=== PATIENT | female | born 1970 | race Caucasian/White ===

== ENCOUNTER 2016-09-13 13:20 | Outpatient (CLI) | payer OTHER ==
--- NOTE | 2016-09-13 14:36 | DIAGNOSTIC IMAGING REPORT ---
PROCEDURE: CT SINUS/FACIAL BONES W/O CONT CLINICAL INDICATION: RECURRENT SINSUSITIS TECHNIQUE: Noncontrast axial CT images through the sinuses. Coronal and sagittal reformations were created. COMPARISON: None. FINDINGS: The frontal sinuses are normally aerated. The outflow tracts are patent. Sphenoid sinuses are normally aerated. No significant mucosal thickening throughout the ethmoid air cells. The maxillary sinuses are normally aerated with without mucosal thickening. Diminutive caliber of the left sphenoid sinus outflow tract and left maxillary sinus outflow tract. No significant mucosal thickening at the ostiomeatal unit on either side. The nasal septum is mildly irregular but fairly midline suggestive of prior fracture and healing. No significant deviation or spur formation. Small amount of mucus present posteriorly along the inferior portion of the right nasal passage. Normal nasal turbinate morphology. The visible portions of the mastoid cavities are normally aerated. No facial bone fractures. Temporomandibular joints are normally aligned. Bony orbits are intact. Orbital soft tissues appear normal. Facial soft tissues and visible glandular structures are symmetric. Moderate thickening of the adenoid soft tissue. IMPRESSION: 1. Moderate thickening of the adenoid soft tissue and small amount of mucus within the right inferior nasal passage. 2. No evidence of acute or chronic sinus disease. All CT scans at this facility use dose modulation, iterative reconstruction, and/or weight-based dosing when appropriate to reduce radiation dose to as low as reasonably achievable.
== END 2016-09-13 23:00 ==
LOC: CT SRH 13:20
DX: J32.9 Chronic sinusitis, unspecified (principal)